=== PATIENT | male | born 1945 | race Caucasian/White ===

== ENCOUNTER 2017-06-23 10:17 | Outpatient (CLI) | payer MEDICARE, BC ==
[2017-06-23] MEDS ORDERED: Iopamidol 370 76% 100 ML VIAL ONE (13:58)
== END 2017-06-23 10:18 | disposition home or self-care (01) ==
LOC: BICCT 10:17
PROVIDERS: ATTEND Urology
DX: R31.29 Other microscopic hematuria (principal); R39.14 Feeling of incomplete bladder emptying; I71.4 Abdominal aortic aneurysm, without rupture; K43.9 Ventral hernia without obstruction or gangrene; J43.9 Emphysema, unspecified
CPT/HCPCS: 74178